=== PATIENT | female | born 1975 | race Caucasian/White ===

== ENCOUNTER 2016-10-05 06:45 | Observation (INO) | payer OTHER ==
[2016-09-06 09:24] VITALS: BMI 45.0
[~2016-10-05] VITALS: Ht 167.6 cm; Wt 128.9 kg
[2016-10-05] VITALS (11 sets, daily range): BP systolic 108–139; BP diastolic 68–82; PULSE 68–85; TEMP 36.6–37.2; O2SAT 93–99; Ht 167.6 cm; Wt 128.9 kg
[~2016-10-05 06:45] MED LIST: ATV/1 SL; CEFAZOLIN 1000MG/55 ML D5W IV SCH; CEFAZOLIN 3000 MG/65 ML D5W 65 ML IV SCH; CYCL10TA6 PO; LACTATED RINGER'S 1000ML 1,000 ML IV SCH; METO25TA56 PO; NAPR-1169 PO; PRLSR20 PO; VNTHFA/IN INH
[2016-10-05] MEDS ORDERED: FERR1TAB13 PO (07:14)
[2016-10-05] MEDS ORDERED: ESCI10TA17 PO (07:14)
[2016-10-05] MEDS ORDERED: ASPI325T45 PO (07:14)
[2016-10-05] MEDS ORDERED: PROPOFOL IV EMULSION 10 MG/ML 100 ML VIAL IV ONE (07:39)
[2016-10-05] MEDS ORDERED: MIDAZOLAM HCL 1 MG/ML 2ML VIAL ONE ×2 (07:46→08:57)
[2016-10-05] MEDS ORDERED: FENTANYL CITRATE INJ 50 MCG/1 ML 2 ML VIAL ONE ×4 (07:46→10:12)
[2016-10-05] MEDS: LACTATED RINGER'S 1000ML 1,000 ML IV SCH ×2 (07:51→12:24)
[2016-10-05] MEDS ORDERED: LIDOCAINE HCL 2% 2 ML VIAL (20MG/ML) ONE (07:57)
[2016-10-05] MEDS ORDERED: PROPOFOL IV EMULSION 10 MG/ML 20 ML VIAL IV ONE (07:57)
--- NOTE | 2016-10-05 08:13 | History & Physical Bridge Note ---
H&P Re-Evaluation Bridge Note: I have examined the patient, reviewed the History & Physical and in the interval since the performance of the History & Physical I have noted the following changes of clinical significance: No changes noted
[2016-10-05] MEDS ORDERED: ISOPROTERENOL 200 MCG / 50ML D5W IV ONE (10:12)
--- NOTE | 2016-10-05 11:12 | [facility] Post Operative Brief Note ---
Immediate Operative Summary Operative Date Oct 05, 2016. Pre-Operative Diagnosis SVT Post-Operative Diagnosis avnrt Procedure(s) Performed eps, 3d mapping of his bundle and c/s os, slow pathyway modification; isoprel infusion Surgeon prema vazquez Store Grocery Merchandiser Surgeon(s) none Estimated Blood Loss <5cc Findings see official report Fluids (cc crystalloids) 870cc Specimens none Drains none Anesthesia 6mg versed; 400mcg fentanyl, 1800mg propofol Complication(s) None Disposition PCU
[2016-10-05] MEDS ORDERED: ACETAMINOPHEN 325 MG TAB PO PRN (11:15)
[2016-10-05] MEDS ORDERED: NAPROXEN 250 MG TAB PO PRN (11:15)
[2016-10-05] MEDS ORDERED: ALBUTEROL HFA 8 GM INHALER INH PRN (11:15)
--- NOTE | 2016-10-05 11:16 | Discharge Instructions ---
Discharge Instructions Date of Service Oct 05, 2016. Admission Reason for Admission: W/Anesthesia Supraventricular Tachycardia Discharge Discharge Diagnosis / Problem: avnrt Discharge Goals Goal(s): Improve function Activity Recommendations Activity Limitations: as noted below Lifting Limitations: no more than 10 pounds Exercise/Sports Limitations: as tolerated May Resume Sexual Activity: after one week Shower/Bathe: tomorrow Driving or Machine Use: resume 1 day after discharge . Instructions / Follow-Up Instructions / Follow-Up ACTIVITY RECOMMENDATIONS: It is common to feel weak and fatigue for a few days. * Do not drive or operate any motorized equipment for the next day. * Limit stair usage (2 or 3 trips a day only) for the next three days. * Do not lift anything heavier than 10 pounds for the next 7 days. * Do not engage in vigorous exercise or any sports for the next five days. * You may shower the day after your procedure, but do not immerse the area for three days. Cleanse the site gently with soap and water. SPECIAL CARE INSTRUCTIONS: * You may replace the pressure dressing or band-aid the morning after the procedure. * After your procedure, it is normal to have a small bruise or small lump at the site. Examine your site daily for any change in the bruise or lump, redness, swelling, drainage or numbness. Notify your doctor if any change. BLEEDING: * If there is a small amount of bleeding at the site, lie down and apply firm pressure with a clean cloth for ten minutes. When the bleeding stops, lie quietly keeping the procedure limb straight for six hours. Notify your doctor as soon as possible. * If the bleeding does not stop after ten minutes or if there is a large amount of bleeding or spurting, call 911 immediately. Continue to lie down and hold firm pressure until help arrives. SKIN IRRITATION: * You may experience some redness and/or swelling in the area where radiation was administered. If any skin irritation occurs, please contact your family physician. FOLLOW UP VISIT: Keep any scheduled doctor appointments. Current Hospital Diet Patient's current hospital diet: Regular Diet Discharge Diet Recommended Diet: Regular Diet Procedures Procedures Performed: eps, 3d mapping of his bundle and c/s os, slow pathyway modification; isoprel infusion Pending Studies Studies pending at discharge: no Medical Emergencies . Who to Call and When: Medical Emergencies: If at any time you feel your situation is an emergency, please call 911 immediately. . Non-Emergent Contact Non-Emergency issues call your: Direct Sales Representative . . "Provider Documentation" section prepared by Clare Malhotra. VTE Core Measure Inpt VTE Proph given/why not?: Treatment not indicated
--- NOTE | 2016-10-05 11:19 | Discharge Summary ---
Discharge Summary Date of Service Oct 05, 2016. Discharge Summary Admission Date: 10/05/2016 Discharge Date: Oct 06, 2016 Discharge Disposition: Home Principal Diagnosis: avnrt Procedures: eps, 3d mapping of his bundle and c/s os, slow pathyway modification; isoprel infusion Medication Reconciliation Continued Medications: Albuterol Hfa (Ventolin Hfa) 200 Puffs/07099 Mcg Aers 2-4 PUFFS INH Q6H PRN for Shortness of Breath, #1 INHALER Aspirin (Aspirin) 325 Mg Tab 325 MG PO DAILY Cyclobenzaprine Hcl (Flexeril) 10 Mg Tab 10 MG PO TID PRN for SPASM, #21 TAB Escitalopram (Lexapro) 10 Mg Tab 10 MG PO DAILY, TAB Ferrous Sulfate (Kp Ferrous Sulfate) 325 Mg Tab 1 TAB PO DAILY for 30 Days, #30 TAB 3 Refills Lorazepam (Ativan) 1 Mg Tab 1 MG SL TID, TAB Naproxen (Naprosyn) 500 Mg Tab 500 MG PO BID PRN for Pain, TAB Omeprazole (Prilosec) 20 Mg Capcr 20 MG PO QAM, CAP Discontinued Medications: Metoprolol Tartrate (Lopressor) (Lopressor) 25 Mg Tab 25 MG PO BID, TAB Admission Information Physical Exam (per Admitting): aaox3, nad supple nrl s1/s2 no murmur cta b/l no w/r/r soft no focal deficits pulses intact Hospital Course Pt admitted for elective EPS with possible ablation due to recurrent SVT. Pt underwent procedure without any complications and monitored overnight. Discharged home following morning. Total time spent on discharge = This includes examination of the patient, discharge planning, medication reconciliation, and communication with other providers. Discharge Instructions ACTIVITY RECOMMENDATIONS: It is common to feel weak and fatigue for a few days. * Do not drive or operate any motorized equipment for the next day. * Limit stair usage (2 or 3 trips a day only) for the next three days. * Do not lift anything heavier than 10 pounds for the next 7 days. * Do not engage in vigorous exercise or any sports for the next five days. * You may shower the day after your procedure, but do not immerse the area for three days. Cleanse the site gently with soap and water. SPECIAL CARE INSTRUCTIONS: * You may replace the pressure dressing or band-aid the morning after the procedure. * After your procedure, it is normal to have a small bruise or small lump at the site. Examine your site daily for any change in the bruise or lump, redness, swelling, drainage or numbness. Notify your doctor if any change. BLEEDING: * If there is a small amount of bleeding at the site, lie down and apply firm pressure with a clean cloth for ten minutes. When the bleeding stops, lie quietly keeping the procedure limb straight for six hours. Notify your doctor as soon as possible. * If the bleeding does not stop after ten minutes or if there is a large amount of bleeding or spurting, call 911 immediately. Continue to lie down and hold firm pressure until help arrives. SKIN IRRITATION: * You may experience some redness and/or swelling in the area where radiation was administered. If any skin irritation occurs, please contact your family physician. FOLLOW UP VISIT: Keep any scheduled doctor appointments.
[2016-10-05] MEDS ORDERED: IV FLUIDS COMPLETED PRN (11:45)
--- NOTE | 2016-10-05 12:36 | Anesthesiology Progress Note ---
Anesthesia Post Op Note Date & Time Oct 05, 2016 at 12:35 Vital Signs Pain Intensity: 0 Vital Signs Past 12 Hours Date Time Temp Pulse Resp B/P Pulse Ox O2 Delivery O2 Flow Rate FiO2 10/05/16 11:50 36.4 73 16 130/84 96 Nasal Cannula 3 10/05/16 11:40 78 16 132/81 98 Nasal Cannula 3 10/05/16 11:30 112 16 146/76 95 Nasal Cannula 3 10/05/16 07:18 36.6 75 20 118/68 95 Room Air Notes Mental Status: alert / awake / arousable, participated in evaluation Pt Amnestic to Procedure: Yes Nausea / Vomiting: adequately controlled Pain: adequately controlled Airway Patency, RR, SpO2: stable & adequate BP & HR: stable & adequate Hydration State: stable & adequate Anesthetic Complications: no major complications apparent
[2016-10-05] MEDS ORDERED: ATROPINE SULFATE 0.1 MG/ML 5ML SYR IV PRN (12:45)
[2016-10-05] MEDS ORDERED: EpHEDrine SULFATE INJ 50 MG/ML AMP IV PRN (12:45)
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
[2016-10-05] MEDS: CYCLOBENZAPRINE HCL 10 MG TAB PO PRN ×2 (13:36→18:06)
[2016-10-05] MEDS: LORAZEPAM 1 MG TAB SL SCH ×3 (13:36→23:29)
[2016-10-06 00:22] VITALS: BP 92/58; PULSE 79; TEMP 37.1; O2SAT 94
[2016-10-06 04:02] VITALS: BP 103/63; PULSE 68; TEMP 36.9; O2SAT 97
[2016-10-06 07:16] VITALS: BP 107/69; PULSE 64; TEMP 36.8; O2SAT 93
[2016-10-06] MEDS: LORAZEPAM 1 MG TAB SL SCH (07:38)
[2016-10-06 08:47] VITALS: BP 107/69; PULSE 64; TEMP 36.8; O2SAT 93
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
[2016-10-06] MEDS ORDERED: ASPIRIN 325 MG ECTAB PO SCH (09:00)
[2016-10-06] MEDS ORDERED: ESCITALOPRAM OXALATE 10 MG TAB PO SCH (09:00)
[2016-10-06] MEDS ORDERED: FERROUS SULFATE 325 MG TAB PO SCH (09:00)
[2016-10-06] MEDS ORDERED: PANTOprazole SOD 40 MG TAB PO SCH (09:00)
== END 2016-10-06 09:49 | disposition home or self-care (01) ==
LOC: C.ACU 06:45 → C.2T 11:14
PROVIDERS: ADMIT Internal Medicine; ATTEND Internal Medicine
DX: I47.1 Supraventricular tachycardia (principal); B18.2 Chronic viral hepatitis C; K21.9 Gastro-esophageal reflux disease without esophagitis; F17.200 Nicotine dependence, unspecified, uncomplicated; Z83.3 Family history of diabetes mellitus